=== PATIENT | female | born 2000 | race Caucasian/White ===

== ENCOUNTER 2022-11-09 19:56 | Emergency (ER) | payer OTHER ==
[2022-11-09] MEDS ORDERED: Amoxicillin/Potassium Clav 875 MG TAB ONE (20:13)
== END 2022-11-09 20:45 | disposition home or self-care (01) ==
LOC: ERS 19:56
DX: J01.90 Acute sinusitis, unspecified (principal); J02.9 Acute pharyngitis, unspecified; H66.92 Otitis media, unspecified, left ear
CPT/HCPCS: 87081; 87430; 99283

== ENCOUNTER 2023-06-22 10:41 | Emergency (ER) | payer OTHER ==
[2023-06-22] MEDS ORDERED: Acetaminophen 500 MG TAB ONE (10:56)
[2023-06-22] MEDS ORDERED: Lidocaine 1% w/Epinephrine 1:100K 20 ML VIAL ONE (10:56)
== END 2023-06-22 11:30 | disposition home or self-care (01) ==
LOC: ERS 10:41
DX: O23.593 Infection of other part of genital tract in pregnancy, third trimester (principal); Z3A.40 40 weeks gestation of pregnancy
CPT/HCPCS: 56405

== ENCOUNTER 2025-05-29 19:33 | Emergency (ER) | payer MEDICAID, SELFPAY ==
[2025-05-29] MEDS ORDERED: HYDROcodone/Acetaminophen 5/325 mg Tablet ONE (20:48)
[2025-05-29] MEDS ORDERED: Ketorolac Tromethamine 30 MG (1 mL) VIAL ONE (20:48)
== END 2025-05-29 21:43 | disposition home or self-care (01) ==
LOC: ERS 19:33
DX: S39.012A Strain of muscle, fascia and tendon of lower back, initial encounter (principal); X50.1XXA Overexertion from prolonged static or awkward postures, initial encounter
CPT/HCPCS: 96372; 99282; J1885